=== PATIENT | female | born 1975 | race Caucasian/White ===

== ENCOUNTER 2017-09-08 19:44 | Emergency (ER) | payer MEDICAID ==
[~2017-09-08] VITALS: Ht 157.5 cm; Wt 63.6 kg
[~2017-09-08 19:44] MED LIST: AMOX1TAB16 PO; CARBAMEZAPINE PO; DSS100 PO; HYDR-309 PO
[2017-09-08 20:40] LABS: ANION GAP 7 mmol/L (8-16); CALCIUM, TOTAL 8.7 mg/dL (8.8-10.5); CARBON DIOXIDE 28 mmol/L (22-29); CHLORIDE 103 mmol/L (98-107); CREATININE 0.71 mg/dL (0.60-1.30); GLOMERULAR FILTR. RATE CALC > 60 mL/min (>60); GLUCOSE,RANDOM 107 mg/dL (70-110); POTASSIUM 4.1 mmol/L (3.5-5.1); SODIUM SERUM 138 mmol/L (136-145); UREA NITROGEN, BLOOD 17 mg/dL (7-18)
[2017-09-08] MEDS ORDERED: KETOROLAC TROMETHAMINE 30 MG/ML VIAL IM ONE (23:30)
[2017-09-08 23:31] VITALS: BP 136/68
== END 2017-09-08 23:44 | disposition home or self-care (01) ==
LOC: EMS 19:45
DX: R56.9 Unspecified convulsions (principal)
CPT/HCPCS: 36415; 80048; 80156; 82962; 84703; 96372; 99284; J1885

== ENCOUNTER 2018-10-20 17:28 | Emergency (ER) | payer MEDICAID ==
[~2018-10-20] VITALS: Ht 154.9 cm; Wt 77.7 kg
[~2018-10-20 17:28] MED LIST changes: -AMOX1TAB16 PO; -DSS100 PO; -HYDR-309 PO
[2018-10-20] MEDS ORDERED: PredniSONE 20 MG TABLET PO ONE (18:00)
[2018-10-20] MEDS ORDERED: ALBUTEROL SULFATE 2.5 MG/0.5 ML NEB SOLUTION NEB ONE (18:00)
[2018-10-20] MEDS ORDERED: IPRATROPIUM BROMIDE 0.5 MG/2.5 ML NEB SOLUTION NEB ONE (18:00)
[2018-10-20 19:13] LABS: BASOPHILS % (AUTO) 0.6 % (0.0-2.0); EOSINOPHILS % (AUTO) 0 % (1.0-6.0); HEMATOCRIT 41.8 % (36-46); LYMPHOCYTES # (AUTO) 1.4 K/uL (1.0-4.8); LYMPHOCYTES % (AUTO) 19.8 % (22.0-44.0); MEAN CORPUSCULAR HEMOGLOBIN 29.7 pg (26.0-34.0); MEAN CORPUSCULAR HGB CONC 33.5 G/dL (31.0-37.0); MEAN CORPUSCULAR VOLUME 89 fL (80-100); MONOCYTES # (AUTO) 0.7 K/uL (0.1-1.0); MONOCYTES % (AUTO) 10.3 % (2.0-9.0); NEUTROPHILS # (AUTO) 4.9 K/uL (1.8-7.7); NEUTROPHILS % (AUTO) 69.3 % (40.0-70.0); PLATELET COUNT (AUTO) 154 K/uL (150-450); RED BLOOD CELL COUNT(AUTO) 4.72 MIL/uL (4.00-5.20); RED CELL DISTRIBUTION WIDTH 13.5 % (11.5-14.5)
[2018-10-20 19:35] LABS: B-TYPE NATRIURETIC PEPTIDE 20 pg/mL (0-100)
[2018-10-20 19:39] LABS: ANION GAP 10 mmol/L (8-16); CALCIUM, TOTAL 9.1 mg/dL (8.8-10.5); CARBON DIOXIDE 23 mmol/L (22-29); CHLORIDE 104 mmol/L (98-107); CREATININE 0.77 mg/dL (0.60-1.30); GLOMERULAR FILTR. RATE CALC > 60 mL/min (>60); GLUCOSE,RANDOM 99 mg/dL (70-110); POTASSIUM 3.3 mmol/L (3.5-5.1); SODIUM SERUM 137 mmol/L (136-145); UREA NITROGEN, BLOOD 11 mg/dL (7-18)
[2018-10-20 20:02] LABS: ALANINE AMINOTRANSFERASE 20 U/L (12-78); ALBUMIN 3.1 g/dL (3.4-5.0); ALKALINE PHOSPHATASE 97 U/L (46-116); ASPARTATE AMINOTRANSFERASE 15 U/L (15-37); BILIRUBIN,TOTAL 0.1 mg/dL (0.1-1.0); CREATINE KINASE, TOTAL ONLY 91 U/L (26-192); TOTAL PROTEIN, SERUM 7.5 g/dL (6.4-8.2)
[2018-10-20 20:06] VITALS: BP 116/78
[2018-10-20 20:08] LABS: APPEARANCE,URINE CLOUDY (CLEAR); BILIRUBIN,URINE NEGATIVE (NEGATIVE); GLUCOSE, URINE (UA) NEGATIVE (NEGATIVE); KETONES,URINE TRACE mg/dL (NEGATIVE); LEUKOCYTE ESTERASE ,URINE SMALL (NEGATIVE); NITRATE,URINE NEGATIVE (NEGATIVE); OCCULT BLOOD,URINE LARGE (NEGATIVE); PH,URINE 8.5 (5.0-8.0); PROTEIN,URINE NEGATIVE (NEGATIVE); UROBILINOGEN,URINE 0.2 mg/dL (<=1.0)
[2018-10-20 20:13] LABS: BACTERIA,URINE Few /HPF (None Seen); RBC,URINE 26-50 /HPF (0-2)
[2018-10-20 20:14] LABS: SQUAMOUS EPITHELIAL CELL,UR Few /LPF (None Seen)
== END 2018-10-20 20:09 | disposition home or self-care (01) ==
LOC: EMS 17:28
DX: J18.9 Pneumonia, unspecified organism (principal)
CPT/HCPCS: 36415; 71045; 80053; 81001; 81025; 82550; 83880; 84484; 85025; 87086; 93005; 94640; 99284; J7512

== ENCOUNTER 2018-10-22 12:41 | Emergency (ER) | payer MEDICAID ==
[~2018-10-22] VITALS: Ht 162.6 cm; Wt 90.9 kg
[2018-10-22] MEDS ORDERED: ALBUTEROL SULFATE 2.5 MG/0.5 ML NEB SOLUTION NEB ONE (12:45)
[2018-10-22] MEDS ORDERED: IPRATROPIUM BROMIDE 0.5 MG/2.5 ML NEB SOLUTION NEB ONE ×2 (12:45→15:00)
[2018-10-22] MEDS ORDERED: ALBUTEROL SULFATE 5 MG/ML 20 ML NEB SOLN [BULK] NEB ONE (15:00)
[2018-10-22] MEDS ORDERED: ALBUTEROL SULFATE HFA 90 MCG/PUFF 8 GM INHALER IH ONE (16:00)
[2018-10-22 16:50] VITALS: BP 117/57
== END 2018-10-22 17:10 | disposition home or self-care (01) ==
LOC: EMS 12:41
DX: J18.9 Pneumonia, unspecified organism (principal); R06.02 Shortness of breath
CPT/HCPCS: 94640; 94644; J3535

== ENCOUNTER 2021-01-08 19:02 | Emergency (ER) | payer MEDICAID ==
[~2021-01-08] VITALS: Ht 165.1 cm; Wt 75.0 kg
[2021-01-08 22:43] LABS: COVID AG,FIA SOURCE NASOPHARYNGEAL
[2021-01-08 23:02] LABS: BASOPHILS % (AUTO) 0.3 % (0.0-2.0); EOSINOPHILS % (AUTO) 0 % (1.0-6.0); HEMATOCRIT 40.4 % (36-46); HEMOGLOBIN 13.3 g/dL (12.0-16.0); LYMPHOCYTES # (AUTO) 1.3 K/uL (1.0-4.8); LYMPHOCYTES % (AUTO) 18.5 % (22.0-44.0); MEAN CORPUSCULAR HEMOGLOBIN 30.1 pg (26.0-34.0); MEAN CORPUSCULAR HGB CONC 32.9 G/dL (31.0-37.0); MEAN CORPUSCULAR VOLUME 92 fL (80-100); MONOCYTES # (AUTO) 0.9 K/uL (0.1-1.0); MONOCYTES % (AUTO) 11.9 % (2.0-9.0); NEUTROPHILS # (AUTO) 5.1 K/uL (1.8-7.7); NEUTROPHILS % (AUTO) 69.3 % (40.0-70.0); PLATELET COUNT (AUTO) 123 K/uL (150-450); RED BLOOD CELL COUNT(AUTO) 4.41 MIL/uL (4.00-5.20); RED CELL DISTRIBUTION WIDTH 14.2 % (11.5-14.5)
[2021-01-08 23:12] LABS: ANION GAP 7 mmol/L (8-16); CALCIUM, TOTAL 8.1 mg/dL (8.8-10.5); CARBON DIOXIDE 28 mmol/L (22-29); CHLORIDE 109 mmol/L (98-107); CREATININE 0.64 mg/dL (0.60-1.30); GLOMERULAR FILTR. RATE CALC > 60 mL/min (>60); GLUCOSE,RANDOM 97 mg/dL (70-110); POTASSIUM 3.8 mmol/L (3.5-5.1); SODIUM SERUM 144 mmol/L (136-145); UREA NITROGEN, BLOOD 11 mg/dL (7-18)
[2021-01-08] MEDS ORDERED: LevETIRAcetam 500 MG TABLET PO ONE (23:15)
[2021-01-08 23:16] LABS: APPEARANCE,URINE CLEAR (CLEAR); BILIRUBIN,URINE NEGATIVE (NEGATIVE); GLUCOSE, URINE (UA) NEGATIVE (NEGATIVE); KETONES,URINE NEGATIVE (NEGATIVE); LEUKOCYTE ESTERASE ,URINE NEGATIVE (NEGATIVE); NITRATE,URINE NEGATIVE (NEGATIVE); OCCULT BLOOD,URINE NEGATIVE (NEGATIVE); PROTEIN,URINE NEGATIVE (NEGATIVE); UROBILINOGEN,URINE 0.2 mg/dL (<=1.0)
[2021-01-08 23:20] LABS: LACTIC ACID 0.9 mmol/L (0.4-2.0)
[2021-01-08 23:23] LABS: BACTERIA,URINE None Seen /HPF (None Seen); RBC,URINE None Seen /HPF (0-2); SQUAMOUS EPITHELIAL CELL,UR Few /LPF (None Seen); WBC,URINE 0-2 /HPF (0-5)
[2021-01-08 23:36] LABS: ALANINE AMINOTRANSFERASE 25 U/L (12-78); ALKALINE PHOSPHATASE 117 U/L (46-116); ASPARTATE AMINOTRANSFERASE 18 U/L (15-37); BILIRUBIN,TOTAL 0.1 mg/dL (0.1-1.0); CREATINE KINASE, TOTAL ONLY 111 U/L (26-192); HCG,QUANTITATIVE < 1 mIU/mL (0-6); TOTAL PROTEIN, SERUM 6.9 g/dL (6.4-8.2)
[2021-01-09 01:17] VITALS: BP 118/77
== END 2021-01-09 01:20 | disposition home or self-care (01) ==
LOC: EMS 19:02
DX: G40.909 Epilepsy, unspecified, not intractable, without status epilepticus (principal); Z20.822 Contact with and (suspected) exposure to COVID-19
CPT/HCPCS: 80053; 81001; 82550; 83605; 83735; 84702; 85025; 99283

== ENCOUNTER 2021-04-06 14:44 | Emergency (ER) | payer MEDICAID ==
[~2021-04-06] VITALS: Ht 160 cm; Wt 76.4 kg
[2021-04-06] MEDS ORDERED: ACETAMINOPHEN 500 MG TABLET PO ONE (15:15)
[2021-04-06 15:26] LABS: BASOPHILS % (AUTO) 0.6 % (0.0-2.0); EOSINOPHILS % (AUTO) 0 % (1.0-6.0); HEMATOCRIT 41.7 % (36-46); HEMOGLOBIN 13.6 g/dL (12.0-16.0); LYMPHOCYTES % (AUTO) 17.9 % (22.0-44.0); MEAN CORPUSCULAR HEMOGLOBIN 29.8 pg (26.0-34.0); MEAN CORPUSCULAR HGB CONC 32.6 G/dL (31.0-37.0); MEAN CORPUSCULAR VOLUME 91 fL (80-100); MONOCYTES # (AUTO) 0.7 K/uL (0.1-1.0); MONOCYTES % (AUTO) 12.9 % (2.0-9.0); NEUTROPHILS # (AUTO) 3.9 K/uL (1.8-7.7); NEUTROPHILS % (AUTO) 68.6 % (40.0-70.0); PLATELET COUNT (AUTO) 100 K/uL (150-450); RED BLOOD CELL COUNT(AUTO) 4.56 MIL/uL (4.00-5.20); RED CELL DISTRIBUTION WIDTH 13.7 % (11.5-14.5)
[2021-04-06 15:38] LABS: ANION GAP 10 mmol/L (8-16); CALCIUM, TOTAL 8.2 mg/dL (8.8-10.5); CARBON DIOXIDE 25 mmol/L (22-29); CHLORIDE 106 mmol/L (98-107); CREATININE 0.75 mg/dL (0.60-1.30); GLOMERULAR FILTR. RATE CALC > 60 mL/min (>60); GLUCOSE,RANDOM 92 mg/dL (70-110); POTASSIUM 3.6 mmol/L (3.5-5.1); SODIUM SERUM 141 mmol/L (136-145); UREA NITROGEN, BLOOD 11 mg/dL (7-18)
[2021-04-06 15:45] LABS: LACTIC ACID 1.4 mmol/L (0.4-2.0)
[2021-04-06 15:48] LABS: B-TYPE NATRIURETIC PEPTIDE 43 pg/mL (0-100)
[2021-04-06 15:55] LABS: COVID AG,FIA SOURCE NASOPHARYNGEAL
[2021-04-06 16:17] LABS: ALANINE AMINOTRANSFERASE 19 U/L (12-78); ALBUMIN 2.9 g/dL (3.4-5.0); ALKALINE PHOSPHATASE 100 U/L (46-116); ASPARTATE AMINOTRANSFERASE 16 U/L (15-37); BILIRUBIN,TOTAL 0.2 mg/dL (0.1-1.0); C-REACTIVE PROTEIN QUANT 1.86 mg/dL (0.00-0.30); CREATINE KINASE, TOTAL ONLY 81 U/L (26-192); FERRITIN 62 ng/mL (8-252); HCG,QUANTITATIVE < 1 mIU/mL (0-6); TOTAL PROTEIN, SERUM 7.1 g/dL (6.4-8.2)
[2021-04-06 16:35] LABS: INFLUENZA TYPE A NEGATIVE FOR TYPE A (NEGATIVE); INFLUENZA TYPE B NEGATIVE FOR TYPE B (NEGATIVE)
[2021-04-06 16:45] VITALS: BP 136/66
== END 2021-04-06 17:09 | disposition home or self-care (01) ==
LOC: EMS 14:47
DX: B34.9 Viral infection, unspecified (principal); Z20.822 Contact with and (suspected) exposure to COVID-19
CPT/HCPCS: 36415; 71045; 80053; 82550; 82728; 83605; 83880; 84484; 84702; 85025; 85379; 86140; 87426; 87804; 93005; 99285; U0003

== ENCOUNTER 2021-06-08 15:21 | Emergency (ER) | payer MEDICAID ==
[~2021-06-08] VITALS: Ht 157.5 cm; Wt 72.7 kg
[2021-06-08 15:32] VITALS: BP 115/67
== END 2021-06-08 16:13 | disposition home or self-care (01) ==
LOC: EMS 15:23
DX: R05.9 Cough, unspecified (principal); Z20.822 Contact with and (suspected) exposure to COVID-19
CPT/HCPCS: 99283; U0003

== ENCOUNTER 2021-06-23 16:19 | Emergency (ER) | payer MEDICAID ==
[~2021-06-23] VITALS: Ht 157.5 cm; Wt 77.3 kg
[2021-06-23] MEDS ORDERED: ACETAMINOPHEN 500 MG TABLET PO ONE (16:30)
[2021-06-23] MEDS ORDERED: BACITRACIN 0.9 GM PACKET OINTMENT TP ONE (16:30)
[2021-06-23] MEDS ORDERED: PERTUSS(ACELL),DIPH,TET VAC/PF 0.5 ML SYRINGE IM. ONE (16:30)
[2021-06-23] MEDS ORDERED: LIDOCAINE 1% 10 ML VIAL SQ ONE (16:30)
[2021-06-23] MEDS ORDERED: LEVE500T20 PO (16:32)
[2021-06-23] MEDS ORDERED: CARB200T6 PO (16:32)
[2021-06-23] MEDS ORDERED: OXYMETAZOLINE HCL 0.05% 15 ML NASAL SPRAY NASAL ONE (19:00)
[2021-06-23 21:15] VITALS: BP 118/70
== END 2021-06-23 22:01 | disposition home or self-care (01) ==
LOC: EMS 16:19
DX: S01.511A Laceration without foreign body of lip, initial encounter (principal); S01.21XA Laceration without foreign body of nose, initial encounter; S01.112A Laceration without foreign body of left eyelid and periocular area, initial encounter; Z79.899 Other long term (current) drug therapy; W01.10XA Fall on same level from slipping, tripping and stumbling with subsequent striking against unspecified object, initial encounter; Y93.89 Activity, other specified; Y92.89 Other specified places as the place of occurrence of the external cause; Y99.8 Other external cause status
CPT/HCPCS: 12013; 70110; 70160; 90471; 90715; 99284; J3490; 12011

== ENCOUNTER 2021-06-26 08:14 | Emergency (ER) | payer MEDICAID ==
[~2021-06-26] VITALS: Ht 157.5 cm; Wt 77.2 kg
[~2021-06-26 08:14] MED LIST changes: +CARB200T6 PO; -CARBAMEZAPINE PO; +LEVE500T20 PO
[2021-06-26 08:16] VITALS: BP 115/83
== END 2021-06-26 09:41 | disposition home or self-care (01) ==
LOC: EMS 08:15
DX: S01.511D Laceration without foreign body of lip, subsequent encounter (principal); Z90.89 Acquired absence of other organs; X58.XXXD Exposure to other specified factors, subsequent encounter
CPT/HCPCS: 99281; Z7502

== ENCOUNTER 2022-01-16 18:52 | Emergency (ER) | payer MEDICAID ==
[~2022-01-16] VITALS: Ht 152.4 cm; Wt 80.0 kg
[~2022-01-16 18:52] MED LIST changes: +LIDOCAINE/PF 2% 5 ML VIAL IM ONE; +PROPOFOL 1% 20 ML VIAL IVP ONE
[2022-01-16 19:11] VITALS: BP 118/77
[2022-01-16] MEDS ORDERED: SODIUM CHLORIDE 0.9% 0 ML ONE (20:08)
[2022-01-16 20:09] LABS: COVID AG,FIA SOURCE NASOPHARYNGEAL
[2022-01-16] MEDS ORDERED: SODIUM CHLORIDE 0.9% 1,000 ML ONE (20:14)
[2022-01-16 20:25] LABS: BASOPHILS % (AUTO) 0.3 % (0.0-2.0); EOSINOPHILS % (AUTO) 0 % (1.0-6.0); HEMATOCRIT 38.9 % (36-46); HEMOGLOBIN 13.1 g/dL (12.0-16.0); LYMPHOCYTES % (AUTO) 16.9 % (22.0-44.0); MEAN CORPUSCULAR HEMOGLOBIN 29.9 pg (26.0-34.0); MEAN CORPUSCULAR HGB CONC 33.6 G/dL (31.0-37.0); MEAN CORPUSCULAR VOLUME 89 fL (80-100); MONOCYTES # (AUTO) 0.7 K/uL (0.1-1.0); MONOCYTES % (AUTO) 12.4 % (2.0-9.0); NEUTROPHILS # (AUTO) 4.2 K/uL (1.8-7.7); NEUTROPHILS % (AUTO) 70.4 % (40.0-70.0); PLATELET COUNT (AUTO) 114 K/uL (150-450); RED BLOOD CELL COUNT(AUTO) 4.37 MIL/uL (4.00-5.20)
[2022-01-16 20:33] LABS: ANION GAP 14 mmol/L (8-16); CALCIUM, TOTAL 8.1 mg/dL (8.8-10.5); CARBON DIOXIDE 27 mmol/L (22-29); CHLORIDE 102 mmol/L (98-107); CREATININE 0.76 mg/dL (0.60-1.30); GLUCOSE,RANDOM 91 mg/dL (70-110); POTASSIUM 3.6 mmol/L (3.5-5.1); SODIUM SERUM 143 mmol/L (136-145); UREA NITROGEN, BLOOD 10 mg/dL (7-18)
[2022-01-16 20:34] LABS: GLOMERULAR FILTR. RATE CALC > 60 mL/min (>60)
[2022-01-16 20:39] LABS: ALANINE AMINOTRANSFERASE 18 U/L (12-78); ALBUMIN 3.1 g/dL (3.4-5.0); ALKALINE PHOSPHATASE 92 U/L (46-116); ASPARTATE AMINOTRANSFERASE 15 U/L (15-37); BILIRUBIN,TOTAL 0.2 mg/dL (0.1-1.0)
[2022-01-16] MEDS ORDERED: PANT-31 PO (21:22)
== END 2022-01-16 22:38 | disposition home or self-care (01) ==
LOC: EMS 21:36
DX: T18.128A Food in esophagus causing other injury, initial encounter (principal); M19.90 Unspecified osteoarthritis, unspecified site; Z20.822 Contact with and (suspected) exposure to COVID-19; Z86.69 Personal history of other diseases of the nervous system and sense organs; Z90.49 Acquired absence of other specified parts of digestive tract; Z98.890 Other specified postprocedural states; X58.XXXA Exposure to other specified factors, initial encounter; Y93.89 Activity, other specified; Y92.89 Other specified places as the place of occurrence of the external cause; Y99.8 Other external cause status
CPT/HCPCS: 43247; 80053; 85025; 36415; 99285; 87426; Z7610; J2704; J3490; J7030; C9803

== ENCOUNTER 2022-07-03 08:06 | Emergency (ER) | payer MEDICAID ==
[~2022-07-03] VITALS: Ht 157.5 cm; Wt 83.6 kg
[~2022-07-03 08:06] MED LIST changes: -LIDOCAINE/PF 2% 5 ML VIAL IM ONE; +PANT-31 PO; -PROPOFOL 1% 20 ML VIAL IVP ONE
[2022-07-03] MEDS ORDERED: METOCLOPRAMIDE HCL 5 MG/ML 2 ML VIAL IVP ONE (08:45)
[2022-07-03] MEDS ORDERED: SODIUM CHLORIDE 0.9% 1,000 ML IV ONE (08:45)
[2022-07-03 09:21] LABS: BASOPHILS % (AUTO) 0.7 % (0.0-2.0); EOSINOPHILS % (AUTO) 0 % (1.0-6.0); HEMATOCRIT 42.4 % (36-46); LYMPHOCYTES # (AUTO) 0.7 K/uL (1.0-4.8); LYMPHOCYTES % (AUTO) 9.8 % (22.0-44.0); MEAN CORPUSCULAR HGB CONC 33.1 G/dL (31.0-37.0); MEAN CORPUSCULAR VOLUME 91 fL (80-100); MONOCYTES # (AUTO) 0.5 K/uL (0.1-1.0); MONOCYTES % (AUTO) 7.1 % (2.0-9.0); NEUTROPHILS % (AUTO) 82.4 % (40.0-70.0); PLATELET COUNT (AUTO) 126 K/uL (150-450); RED BLOOD CELL COUNT(AUTO) 4.67 MIL/uL (4.00-5.20); RED CELL DISTRIBUTION WIDTH 14.2 % (11.5-14.5)
[2022-07-03 09:54] LABS: ANION GAP 8 mmol/L (8-16); CALCIUM, TOTAL 8.8 mg/dL (8.8-10.5); CARBON DIOXIDE 28 mmol/L (22-29); CHLORIDE 103 mmol/L (98-107); CREATININE 0.74 mg/dL (0.60-1.30); GLOMERULAR FILTR. RATE CALC > 60 mL/min (>60); GLUCOSE,RANDOM 98 mg/dL (70-110); POTASSIUM 3.9 mmol/L (3.5-5.1); SODIUM SERUM 139 mmol/L (136-145); UREA NITROGEN, BLOOD 9 mg/dL (7-18)
[2022-07-03 10:06] LABS: ALANINE AMINOTRANSFERASE 19 U/L (12-78); ALBUMIN 3.5 g/dL (3.4-5.0); ALKALINE PHOSPHATASE 123 U/L (46-116); ASPARTATE AMINOTRANSFERASE 19 U/L (15-37); BILIRUBIN,TOTAL 0.3 mg/dL (0.1-1.0); HCG,QUANTITATIVE < 1 mIU/mL (0-6); LIPASE 105 U/L (73-393); TOTAL PROTEIN, SERUM 8.1 g/dL (6.4-8.2)
[2022-07-03 10:12] LABS: APPEARANCE,URINE CLEAR (CLEAR); BILIRUBIN,URINE NEGATIVE (NEGATIVE); GLUCOSE, URINE (UA) NEGATIVE (NEGATIVE); KETONES,URINE NEGATIVE (NEGATIVE); LEUKOCYTE ESTERASE ,URINE NEGATIVE (NEGATIVE); NITRATE,URINE NEGATIVE (NEGATIVE); OCCULT BLOOD,URINE NEGATIVE (NEGATIVE); PROTEIN,URINE NEGATIVE (NEGATIVE); SPECIFIC GRAVITIY, URINE 1.004 (1.003-1.030); UROBILINOGEN,URINE <=1.0 mg/dL (<=1.0)
[2022-07-03 12:21] VITALS: BP 125/70
== END 2022-07-03 12:55 | disposition home or self-care (01) ==
LOC: EMS 08:12
DX: K52.9 Noninfective gastroenteritis and colitis, unspecified (principal); M19.90 Unspecified osteoarthritis, unspecified site; Z90.49 Acquired absence of other specified parts of digestive tract; Z98.890 Other specified postprocedural states
CPT/HCPCS: 99285; 96374; 96361; 80053; 81003; 83690; 84702; 85025; 36415; 74022; J2765; J7030

== ENCOUNTER 2022-10-01 18:53 | Emergency (ER) | payer MEDICAID ==
[~2022-10-01] VITALS: Ht 157.5 cm; Wt 83.6 kg
[2022-10-01 19:59] LABS: BASOPHILS % (AUTO) 0.3 % (0.0-2.0); EOSINOPHILS % (AUTO) 0 % (1.0-6.0); HEMATOCRIT 39.8 % (36-46); LYMPHOCYTES # (AUTO) 0.9 K/uL (1.0-4.8); LYMPHOCYTES % (AUTO) 10.7 % (22.0-44.0); MEAN CORPUSCULAR HEMOGLOBIN 29.6 pg (26.0-34.0); MEAN CORPUSCULAR HGB CONC 32.7 G/dL (31.0-37.0); MEAN CORPUSCULAR VOLUME 91 fL (80-100); MONOCYTES # (AUTO) 0.7 K/uL (0.1-1.0); MONOCYTES % (AUTO) 8.1 % (2.0-9.0); NEUTROPHILS # (AUTO) 6.7 K/uL (1.8-7.7); NEUTROPHILS % (AUTO) 80.9 % (40.0-70.0); PLATELET COUNT (AUTO) 103 K/uL (150-450); RED CELL DISTRIBUTION WIDTH 14.2 % (11.5-14.5)
[2022-10-01 20:00] VITALS: BP 125/69
[2022-10-01 20:09] LABS: ANION GAP 7 mmol/L (8-16); CALCIUM, TOTAL 8.3 mg/dL (8.8-10.5); CARBON DIOXIDE 28 mmol/L (22-29); CHLORIDE 107 mmol/L (98-107); CREATININE 0.73 mg/dL (0.60-1.30); GLOMERULAR FILTR. RATE CALC > 60 mL/min (>60); GLUCOSE,RANDOM 123 mg/dL (70-110); POTASSIUM 3.7 mmol/L (3.5-5.1); SODIUM SERUM 142 mmol/L (136-145); UREA NITROGEN, BLOOD 13 mg/dL (7-18)
[2022-10-01 20:18] LABS: ALANINE AMINOTRANSFERASE 19 U/L (12-78); ALBUMIN 3.1 g/dL (3.4-5.0); ALKALINE PHOSPHATASE 125 U/L (46-116); ASPARTATE AMINOTRANSFERASE 15 U/L (15-37); BILIRUBIN,TOTAL 0.1 mg/dL (0.1-1.0); CARBAMAZEPINE (TEGRETOL) 11.1 mcg/mL (4.0-12.0); TOTAL PROTEIN, SERUM 6.9 g/dL (6.4-8.2)
== END 2022-10-01 21:50 | disposition home or self-care (01) ==
LOC: EMS 18:53
DX: G40.909 Epilepsy, unspecified, not intractable, without status epilepticus (principal); M19.90 Unspecified osteoarthritis, unspecified site; Z90.89 Acquired absence of other organs
CPT/HCPCS: 80053; 80156; 84703; 85025; 99283

== ENCOUNTER 2023-06-09 13:28 | Emergency (ER) | payer MEDICAID ==
[~2023-06-09] VITALS: Ht 152.4 cm; Wt 83.6 kg
[~2023-06-09 13:28] MED LIST changes: -CARB200T6 PO; -PANT-31 PO
[2023-06-09 13:51] VITALS: TEMP 98.8
[2023-06-09 14:08] LABS: COVID AG,FIA SOURCE NASAL SWAB
[2023-06-09 14:16] LABS: INFLUENZA TYPE A NEGATIVE FOR TYPE A (NEGATIVE); INFLUENZA TYPE B NEGATIVE FOR TYPE B (NEGATIVE)
[2023-06-09 14:25] LABS: RAPID GROUP A STREP NEGATIVE (NEGATIVE); SARS-COV2 (COVID) ANTIGEN,FIA Positive (Negative)
[2023-06-09 16:01] LABS: APPEARANCE,URINE CLEAR (CLEAR); BILIRUBIN,URINE NEGATIVE (NEGATIVE); COLOR,URINE COLORLESS (YELLOW); GLUCOSE, URINE (UA) NEGATIVE (NEGATIVE); KETONES,URINE NEGATIVE (NEGATIVE); LEUKOCYTE ESTERASE ,URINE TRACE (NEGATIVE); NITRATE,URINE NEGATIVE (NEGATIVE); OCCULT BLOOD,URINE TRACE (NEGATIVE); PROTEIN,URINE NEGATIVE (NEGATIVE); SPECIFIC GRAVITIY, URINE 1.005 (1.003-1.030); UROBILINOGEN,URINE <=1.0 mg/dL (<=1.0)
[2023-06-09 16:38] LABS: BACTERIA,URINE None Seen /HPF (None Seen); RBC,URINE 0-2 /HPF (0-2); SQUAMOUS EPITHELIAL CELL,UR Few /LPF (None Seen)
[2023-06-09] MEDS ORDERED: NIRM1TAB4 PO (16:38)
[2023-06-09 16:56] VITALS: BP 132/74; PULSE 71; RESP 20
== END 2023-06-09 16:57 | disposition home or self-care (01) ==
LOC: EMS 13:41
DX: U07.1 COVID-19 (principal); M19.90 Unspecified osteoarthritis, unspecified site; Z90.49 Acquired absence of other specified parts of digestive tract; Z98.890 Other specified postprocedural states
CPT/HCPCS: 81001; 87430; 87804; 99283

== ENCOUNTER 2023-06-12 12:24 | Emergency (ER) | payer MEDICAID ==
[~2023-06-12] VITALS: Ht 154.9 cm; Wt 83.6 kg
[~2023-06-12 12:24] MED LIST changes: +NIRM1TAB4 PO
[2023-06-12 12:35] VITALS: BP 142/76; PULSE 76; RESP 20; TEMP 97.9
[2023-06-12] MEDS ORDERED: SODIUM CHLORIDE 0.9% 1,000 ML IV ONE (12:45)
[2023-06-12 12:52] LABS: BASOPHILS % (AUTO) 0.3 % (0.0-2.0); EOSINOPHILS % (AUTO) 0 % (1.0-6.0); HEMATOCRIT 38.2 % (36-46); HEMOGLOBIN 13.2 g/dL (12.0-16.0); LYMPHOCYTES # (AUTO) 0.9 K/uL (1.0-4.8); LYMPHOCYTES % (AUTO) 16.1 % (22.0-44.0); MEAN CORPUSCULAR HGB CONC 34.5 G/dL (31.0-37.0); MEAN CORPUSCULAR VOLUME 90 fL (80-100); MONOCYTES # (AUTO) 0.5 K/uL (0.1-1.0); MONOCYTES % (AUTO) 8.8 % (2.0-9.0); NEUTROPHILS # (AUTO) 4.1 K/uL (1.8-7.7); NEUTROPHILS % (AUTO) 74.8 % (40.0-70.0); RED BLOOD CELL COUNT(AUTO) 4.25 MIL/uL (4.00-5.20); RED CELL DISTRIBUTION WIDTH 13.4 % (11.5-14.5); WHITE BLOOD COUNT (AUTO) 5.5 K/uL (4.5-11.0)
[2023-06-12 13:23] LABS: PLATELET COUNT (AUTO) 85 K/uL (150-450)
[2023-06-12 13:24] LABS: RBC MORPHOLOGY COMMENT NORMAL RBC MORPH
[2023-06-12 13:36] LABS: TROPONIN I-HIGH SENSITIVITY 6 ng/L (<51)
[2023-06-12 13:38] LABS: ANION GAP 5 mmol/L (8-16); CALCIUM, TOTAL 8.5 mg/dL (8.8-10.5); CARBON DIOXIDE 28 mmol/L (22-29); CHLORIDE 102 mmol/L (98-107); CREATININE 0.53 mg/dL (0.60-1.30); GLOMERULAR FILTR. RATE CALC > 60 mL/min (>60); GLUCOSE,RANDOM 100 mg/dL (70-110); POTASSIUM 3.8 mmol/L (3.5-5.1); SODIUM SERUM 135 mmol/L (136-145); UREA NITROGEN, BLOOD 8 mg/dL (7-18)
[2023-06-12 13:44] LABS: ALANINE AMINOTRANSFERASE 33 U/L (12-78); ALKALINE PHOSPHATASE 105 U/L (46-116); ASPARTATE AMINOTRANSFERASE 26 U/L (15-37); BILIRUBIN,TOTAL 0.2 mg/dL (0.1-1.0); CREATINE KINASE, TOTAL ONLY 68 U/L (26-192); TOTAL PROTEIN, SERUM 7.2 g/dL (6.4-8.2)
== END 2023-06-12 14:46 | disposition home or self-care (01) ==
LOC: EMS 12:25
DX: R42 Dizziness and giddiness (principal); R53.1 Weakness; M19.90 Unspecified osteoarthritis, unspecified site; Z90.49 Acquired absence of other specified parts of digestive tract; Z98.890 Other specified postprocedural states
CPT/HCPCS: 99284; 96360; 80053; 82550; 84484; 85025; 36415; 93005; J7030

== ENCOUNTER 2024-02-24 16:16 | Emergency (ER) | payer MEDICAID, OTHER ==
[~2024-02-24] VITALS: Ht 157.5 cm; Wt 83.6 kg
[~2024-02-24 16:16] MED LIST changes: +LEVE-71 PO; -LEVE500T20 PO
[2024-02-24 16:21] VITALS: TEMP 97.8
[2024-02-24] MEDS ORDERED: HYDR200T76 PO (16:23)
[2024-02-24] MEDS ORDERED: CARB-92 PO (16:23)
[2024-02-24] MEDS ORDERED: LACO50TA6 PO (16:23)
[2024-02-24] MEDS ORDERED: CARB200T6 PO (16:23)
[2024-02-24] MEDS ORDERED: LEVE10006 PO (16:23)
[2024-02-24] MEDS: IBUPROFEN 600 MG TABLET PO ONE (18:29)
[2024-02-24] MEDS ORDERED: IBUP-1492 PO (19:33)
[2024-02-24 19:52] VITALS: BP 117/60; PULSE 75; RESP 18; O2SAT 96
== END 2024-02-24 20:09 | disposition home or self-care (01) ==
LOC: EMS 16:16
DX: S33.5XXA Sprain of ligaments of lumbar spine, initial encounter (principal); S80.02XA Contusion of left knee, initial encounter; S90.32XA Contusion of left foot, initial encounter; S50.01XA Contusion of right elbow, initial encounter; W01.0XXA Fall on same level from slipping, tripping and stumbling without subsequent striking against object, initial encounter; Y93.89 Activity, other specified; Y92.89 Other specified places as the place of occurrence of the external cause; Y99.8 Other external cause status
CPT/HCPCS: 72100; 99284

== ENCOUNTER 2024-04-01 16:03 | Emergency (ER) | payer OTHER ==
[~2024-04-01] VITALS: Ht 157.5 cm; Wt 74.5 kg
[~2024-04-01 16:03] MED LIST changes: +CARB-92 PO; +CARB200T6 PO; +HYDR200T76 PO; +IBUP-1492 PO; +LACO50TA6 PO; -LEVE-71 PO; +LEVE10006 PO; -NIRM1TAB4 PO
[2024-04-01] MEDS ORDERED: MYCO500T5 PO (18:49)
[2024-04-01] MEDS ORDERED: LATA2.5D14 OU (18:49)
[2024-04-01] MEDS: LORazepam 2 MG/ML VIAL IVP ONE (18:51)
[2024-04-01] MEDS: LevETIRAcetam 1,000 MG in DEXTROSE 5%-WATER 100 ML IV ONE (19:13)
[2024-04-01 19:36] LABS: BASOPHILS % (AUTO) 0.6 % (0.0-2.0); EOSINOPHILS % (AUTO) 0 % (1.0-6.0); HEMATOCRIT 41.7 % (36-46); HEMOGLOBIN 13.8 g/dL (12.0-16.0); LYMPHOCYTES # (AUTO) 1.1 K/uL (1.0-4.8); LYMPHOCYTES % (AUTO) 16.4 % (22.0-44.0); MEAN CORPUSCULAR HEMOGLOBIN 30.4 pg (26.0-34.0); MEAN CORPUSCULAR HGB CONC 33.1 G/dL (31.0-37.0); MEAN CORPUSCULAR VOLUME 92 fL (80-100); MONOCYTES # (AUTO) 0.5 K/uL (0.1-1.0); MONOCYTES % (AUTO) 7.3 % (2.0-9.0); NEUTROPHILS # (AUTO) 5.3 K/uL (1.8-7.7); NEUTROPHILS % (AUTO) 75.7 % (40.0-70.0); PLATELET COUNT (AUTO) 108 K/uL (150-450); RED BLOOD CELL COUNT(AUTO) 4.53 MIL/uL (4.00-5.20); RED CELL DISTRIBUTION WIDTH 14.2 % (11.5-14.5)
[2024-04-01 19:37] LABS: ANION GAP 5 mmol/L (8-16); CALCIUM, TOTAL 8.3 mg/dL (8.8-10.5); CARBON DIOXIDE 28 mmol/L (22-29); CHLORIDE 107 mmol/L (98-107); CREATININE 0.67 mg/dL (0.60-1.30); GLOMERULAR FILTR. RATE CALC > 60 mL/min (>60); GLUCOSE,RANDOM 88 mg/dL (70-110); POTASSIUM 3.8 mmol/L (3.5-5.1); SODIUM SERUM 140 mmol/L (136-145); UREA NITROGEN, BLOOD 11 mg/dL (7-18)
[2024-04-01 19:42] LABS: CARBAMAZEPINE (TEGRETOL) 4.7 mcg/mL (4.0-12.0)
[2024-04-01 21:53] VITALS: BP 119/68; PULSE 75; RESP 15; TEMP 97; O2SAT 98
== END 2024-04-01 21:59 | disposition home or self-care (01) ==
LOC: EMS 16:03
DX: G40.909 Epilepsy, unspecified, not intractable, without status epilepticus (principal); Z79.624 Long term (current) use of inhibitors of nucleotide synthesis; Z90.49 Acquired absence of other specified parts of digestive tract
CPT/HCPCS: 99284; 96365; 96375; 80048; 80156; 85025; 36415; J0712; J2060; J7060

== ENCOUNTER 2024-07-16 01:58 | Emergency (ER) | payer OTHER ==
[~2024-07-16] VITALS: Ht 157.5 cm; Wt 80.5 kg
[~2024-07-16 01:58] MED LIST changes: +LATA2.5D14 OU; +MYCO500T5 PO
[2024-07-16] MEDS: TraMADol HCL 50 MG TABLET PO ONE (03:39)
[2024-07-16] MEDS ORDERED: TRAM50TA5 PO (04:29)
[2024-07-16 05:11] VITALS: BP 129/73; PULSE 74; RESP 18; TEMP 97.3; O2SAT 99
== END 2024-07-16 05:18 | disposition home or self-care (01) ==
LOC: EMS 01:58
DX: S20.213A Contusion of bilateral front wall of thorax, initial encounter (principal); S49.92XA Unspecified injury of left shoulder and upper arm, initial encounter; Z79.624 Long term (current) use of inhibitors of nucleotide synthesis; Z90.49 Acquired absence of other specified parts of digestive tract; W19.XXXA Unspecified fall, initial encounter; Y93.89 Activity, other specified; Y92.89 Other specified places as the place of occurrence of the external cause; Y99.8 Other external cause status
CPT/HCPCS: 71110; 99284; 73030-TC; Z7502; Z7610

== ENCOUNTER 2024-12-01 19:47 | Emergency (ER) | payer OTHER ==
[~2024-12-01] VITALS: Ht 157.5 cm; Wt 80.5 kg
[~2024-12-01 19:47] MED LIST changes: +LEVE100023 PO; -LEVE10006 PO; +TRAM50TA5 PO
[2024-12-01 20:16] VITALS: BP 119/68; PULSE 107; RESP 18; TEMP 98.6; O2SAT 100
[2024-12-01] MEDS ORDERED: FAMO20 PO (20:26)
[2024-12-01] MEDS ORDERED: LEVE-71 PO ×2 (20:26)
[2024-12-01] MEDS ORDERED: LACO150T4 PO (20:26)
[2024-12-01] MEDS ORDERED: VONO20TA PO (20:26)
[2024-12-01] MEDS ORDERED: LAMO-24 PO (20:26)
[2024-12-01 20:58] LABS: BASOPHILS % (AUTO) 0.6 % (0.0-2.0); EOSINOPHILS % (AUTO) 0 % (1.0-6.0); HEMATOCRIT 41.4 % (36-46); HEMOGLOBIN 13.8 g/dL (12.0-16.0); LYMPHOCYTES # (AUTO) 0.8 K/uL (1.0-4.8); LYMPHOCYTES % (AUTO) 9.6 % (22.0-44.0); MEAN CORPUSCULAR HEMOGLOBIN 29.8 pg (26.0-34.0); MEAN CORPUSCULAR HGB CONC 33.2 G/dL (31.0-37.0); MEAN CORPUSCULAR VOLUME 90 fL (80-100); MONOCYTES # (AUTO) 0.6 K/uL (0.1-1.0); MONOCYTES % (AUTO) 7.7 % (2.0-9.0); NEUTROPHILS # (AUTO) 6.7 K/uL (1.8-7.7); NEUTROPHILS % (AUTO) 82.1 % (40.0-70.0); PLATELET COUNT (AUTO) 118 K/uL (150-450); RED BLOOD CELL COUNT(AUTO) 4.62 MIL/uL (4.00-5.20); RED CELL DISTRIBUTION WIDTH 14.6 % (11.5-14.5); WHITE BLOOD COUNT (AUTO) 8.2 K/uL (4.5-11.0)
[2024-12-01 21:07] LABS: CREATININE 1.01 mg/dL (0.60-1.30)
[2024-12-01] MEDS: ONDANSETRON 4 MG TABLET PO ONE (22:12)
[2024-12-01] MEDS: MAG HYDROX/ALUMINUM HYD/SIMETH 30 ML SUSPENSION UDCUP PO ONE (22:42)
== END 2024-12-02 00:11 | disposition home or self-care (01) ==
LOC: EMS 19:47
DX: G40.909 Epilepsy, unspecified, not intractable, without status epilepticus (principal); R10.13 Epigastric pain; R11.2 Nausea with vomiting, unspecified; Z90.49 Acquired absence of other specified parts of digestive tract; Z79.899 Other long term (current) drug therapy
CPT/HCPCS: 99283; 80048; 83735; 85025; 36415; Q0162

== ENCOUNTER 2024-12-02 16:39 | Emergency (ER) | payer OTHER ==
[~2024-12-02] VITALS: Ht 160 cm; Wt 72.7 kg
[~2024-12-02 16:39] MED LIST changes: +FAMO20 PO; +LACO150T4 PO; +LAMO-24 PO; +LEVE-71 PO; +VONO20TA PO
[2024-12-02 16:43] VITALS: BP 126/62; PULSE 64; RESP 18; TEMP 98.5; O2SAT 99
[2024-12-02 18:20] LABS: BASOPHILS % (AUTO) 0.4 % (0.0-2.0); EOSINOPHILS % (AUTO) 0 % (1.0-6.0); HEMATOCRIT 42.4 % (36-46); LYMPHOCYTES # (AUTO) 0.6 K/uL (1.0-4.8); LYMPHOCYTES % (AUTO) 8.7 % (22.0-44.0); MEAN CORPUSCULAR HEMOGLOBIN 29.7 pg (26.0-34.0); MEAN CORPUSCULAR HGB CONC 33.1 G/dL (31.0-37.0); MEAN CORPUSCULAR VOLUME 90 fL (80-100); MONOCYTES # (AUTO) 0.6 K/uL (0.1-1.0); MONOCYTES % (AUTO) 7.8 % (2.0-9.0); NEUTROPHILS % (AUTO) 83.1 % (40.0-70.0); PLATELET COUNT (AUTO) 128 K/uL (150-450); RED BLOOD CELL COUNT(AUTO) 4.73 MIL/uL (4.00-5.20); RED CELL DISTRIBUTION WIDTH 14.7 % (11.5-14.5); WHITE BLOOD COUNT (AUTO) 7.3 K/uL (4.5-11.0)
[2024-12-02 18:28] LABS: ANION GAP 4 mmol/L (8-16); CALCIUM, TOTAL 8.9 mg/dL (8.8-10.5); CARBON DIOXIDE 29 mmol/L (22-29); CHLORIDE 108 mmol/L (98-107); CREATININE 0.85 mg/dL (0.60-1.30); GLOMERULAR FILTR. RATE CALC > 60 mL/min (>60); GLUCOSE,RANDOM 104 mg/dL (70-110); POTASSIUM 3.7 mmol/L (3.5-5.1); SODIUM SERUM 141 mmol/L (136-145); UREA NITROGEN, BLOOD 13 mg/dL (7-18)
[2024-12-02 21:15] LABS: APPEARANCE,URINE CLEAR (CLEAR); BILIRUBIN,URINE NEGATIVE (NEGATIVE); COLOR,URINE LIGHT YELLOW (YELLOW); GLUCOSE, URINE (UA) NEGATIVE (NEGATIVE); KETONES,URINE NEGATIVE (NEGATIVE); LEUKOCYTE ESTERASE ,URINE TRACE (NEGATIVE); NITRATE,URINE NEGATIVE (NEGATIVE); OCCULT BLOOD,URINE NEGATIVE (NEGATIVE); PH,URINE 7.5 (5.0-8.0); PROTEIN,URINE NEGATIVE (NEGATIVE); SPECIFIC GRAVITIY, URINE 1.016 (1.003-1.030); UROBILINOGEN,URINE <=1.0 mg/dL (<=1.0)
[2024-12-02 21:26] LABS: BACTERIA,URINE Few /HPF (None Seen); RBC,URINE 0-2 /HPF (0-2); SQUAMOUS EPITHELIAL CELL,UR Few /LPF (None Seen)
[2024-12-02] MEDS: PB/HYOSCY/ATR/SCOP/LIDO/MAALOX 55 ML BOTTLE PO ONE (22:33)
[2024-12-02] MEDS: METOCLOPRAMIDE HCL 10 MG TABLET PO ONE (22:33)
[2024-12-02] MEDS: OMEPRAZOLE 10 MG CAPSULE PO ONE (22:59)
[2024-12-02] MEDS: SIMETHICONE 80 MG CHEWABLE TABLET CHEW ONE (22:59)
== END 2024-12-03 00:10 | disposition home or self-care (01) ==
LOC: EMS 16:39
DX: R10.13 Epigastric pain (principal); R11.2 Nausea with vomiting, unspecified; G40.909 Epilepsy, unspecified, not intractable, without status epilepticus; M19.90 Unspecified osteoarthritis, unspecified site; Z90.49 Acquired absence of other specified parts of digestive tract; Z79.899 Other long term (current) drug therapy
CPT/HCPCS: 74018; 80048; 81001; 83690; 84703; 85025; 99284; 36415-L1; 36415-TC

== ENCOUNTER 2024-12-17 08:05 | Inpatient (IN) | payer OTHER ==
[~2024-12-17] VITALS: Ht 157.5 cm; Wt 83.3 kg
[~2024-12-17 08:05] MED LIST changes: -CARB-92 PO; -HYDR200T76 PO; -IBUP-1492 PO; -LATA2.5D14 OU; +LATA2.5D7 OU; -LEVE100023 PO; -MYCO500T5 PO; -TRAM50TA5 PO
[2024-12-17 08:30] LABS: COVID AG,FIA SOURCE NASAL SWAB
[2024-12-17] MEDS ORDERED: 0.9% SODIUM CHLORIDE 10 ML SYRINGE IVP PRN (08:45)
[2024-12-17] MEDS: ONDANSETRON HCL 4 MG/2 ML VIAL IVP ONE (08:55)
[2024-12-17] MEDS: SODIUM CHLORIDE 0.9% 2,400 ML IV ONE (08:56)
[2024-12-17] MEDS: ACETAMINOPHEN 1000 MG/ISO-OSM 100 ML IV ONE (08:56)
[2024-12-17 08:59] LABS: RAPID GROUP A STREP NEGATIVE (NEGATIVE)
[2024-12-17 09:03] LABS: INFLUENZA TYPE A NEGATIVE FOR TYPE A (NEGATIVE); INFLUENZA TYPE B NEGATIVE FOR TYPE B (NEGATIVE); SARS-COV2 (COVID) ANTIGEN,FIA Negative (Negative)
[2024-12-17 09:07] LABS: RED BLOOD CELL COUNT(AUTO) 4.53 MIL/uL (4.00-5.20); RED CELL DISTRIBUTION WIDTH 14.1 % (11.5-14.5); WHITE BLOOD COUNT (AUTO) 6.7 K/uL (4.5-11.0)
[2024-12-17 09:24] LABS: LACTIC ACID 1.5 mmol/L (0.4-2.0)
[2024-12-17 09:27] LABS: CALCIUM, TOTAL 8.6 mg/dL (8.8-10.5); CREATININE 0.89 mg/dL (0.60-1.30); GLOMERULAR FILTR. RATE CALC > 60 mL/min (>60); GLUCOSE,RANDOM 128 mg/dL (70-110); SODIUM SERUM 136 mmol/L (136-145); UREA NITROGEN, BLOOD 8 mg/dL (7-18)
[2024-12-17 09:29] LABS: TROPONIN I-HIGH SENSITIVITY 135 ng/L (<51)
[2024-12-17 09:34] LABS: ASPARTATE AMINOTRANSFERASE 26 U/L (15-37); CREATINE KINASE, TOTAL ONLY 142 U/L (26-192); TOTAL PROTEIN, SERUM 7.2 g/dL (6.4-8.2)
[2024-12-17 10:07] LABS: PLATELET COUNT (AUTO) 97 K/uL (150-450)
[2024-12-17] MEDS: CefTRIAXone 1 GM/DEXTROSE 50 ML IV ONE (10:14)
[2024-12-17 10:29] LABS: APPEARANCE,URINE CLEAR (CLEAR); GLUCOSE, URINE (UA) NEGATIVE (NEGATIVE); LEUKOCYTE ESTERASE ,URINE NEGATIVE (NEGATIVE); NITRATE,URINE NEGATIVE (NEGATIVE); OCCULT BLOOD,URINE TRACE (NEGATIVE); SPECIFIC GRAVITIY, URINE 1.012 (1.003-1.030)
[2024-12-17] MEDS: AZITHROMYCIN 500 MG/NS 250 ML IV ONE (10:51)
[2024-12-17] MEDS ORDERED: ACETAMINOPHEN 650 MG RECTAL SUPPOSITORY PR PRN (12:00)
[2024-12-17 12:08] LABS: TROPONIN I-HIGH SENSITIVITY 127 ng/L (<51)
[2024-12-17] MEDS: ONDANSETRON HCL 4 MG/2 ML VIAL IVP PRN (15:47)
[2024-12-17 17:31] VITALS: BP 137/102; PULSE 117; RESP 20; TEMP 101.3; O2SAT 96
[2024-12-17 18:08] VITALS: BP 116/47; RESP 20; O2SAT 96
[2024-12-17 19:22] VITALS: BP 128/78; PULSE 12; PULSE 120; RESP 20; TEMP 102.9; O2SAT 96
[2024-12-17] MEDS: DOCUSATE SODIUM 100 MG CAPSULE PO SCH (21:00)
[2024-12-17 21:37] VITALS: TEMP 102.7
[2024-12-17] MEDS: LACOSAMIDE 100 MG TABLET PO SCH (21:41)
[2024-12-17] MEDS: ACETAMINOPHEN 325 MG TABLET PO PRN (21:43)
[2024-12-18] VITALS (8 sets, daily range): BP systolic 100–131; BP diastolic 55–88; PULSE 89–110; RESP 15–20; TEMP 98.4–100.2; O2SAT 92–98
[2024-12-18] MEDS: KETOROLAC TROMETHAMINE 15 MG/ML VIAL IVP ONE (02:09)
[2024-12-18] MEDS: FAMOTIDINE 20 MG TABLET PO SCH (08:31)
[2024-12-18] MEDS: CefTRIAXone 1 GM/DEXTROSE 50 ML IV SCH (10:13)
[2024-12-18] MEDS ORDERED: SODIUM CHLORIDE 0.9% 1,000 ML ONE (10:14)
[2024-12-18] MEDS: AZITHROMYCIN 500 MG/NS 250 ML IV SCH (11:27)
[2024-12-18 14:30] LABS: CALCIUM, TOTAL 7.8 mg/dL (8.8-10.5); CREATININE 0.89 mg/dL (0.60-1.30); GLOMERULAR FILTR. RATE CALC > 60 mL/min (>60); GLUCOSE,RANDOM 135 mg/dL (70-110); SODIUM SERUM 131 mmol/L (136-145); TROPONIN I-HIGH SENSITIVITY 36 ng/L (<51); UREA NITROGEN, BLOOD 11 mg/dL (7-18)
[2024-12-18] MEDS ORDERED: POTASSIUM CHLORIDE 20 MEQ ER TABLET PO PRN (18:00)
[2024-12-18] MEDS ORDERED: POTASSIUM CHL 10 MEQ/WATER 50 ML IV PRN (18:00)
[2024-12-18 20:16] LABS: TROPONIN I-HIGH SENSITIVITY 414 ng/L (<51)
[2024-12-18] MEDS: MORPHINE SULFATE 2 MG/ML SYRINGE IVP PRN (20:57)
[2024-12-19] VITALS (8 sets, daily range): BP systolic 129–147; BP diastolic 70–94; PULSE 86–119; RESP 18–43; TEMP 97.9–100.1; O2SAT 95–98
[2024-12-19 06:34] LABS: PLATELET COUNT (AUTO) 91 K/uL (150-450); RED BLOOD CELL COUNT(AUTO) 4.47 MIL/uL (4.00-5.20); RED CELL DISTRIBUTION WIDTH 14.0 % (11.5-14.5); WHITE BLOOD COUNT (AUTO) 14.5 K/uL (4.5-11.0)
[2024-12-19 07:46] LABS: TROPONIN I-HIGH SENSITIVITY 174 ng/L (<51)
[2024-12-19] MEDS: MORPHINE SULFATE 2 MG/ML SYRINGE IVP PRN (08:49)
[2024-12-19] MEDS ORDERED: ALBUTEROL SULFATE 2.5 MG/0.5 ML NEB SOLUTION NEB PRN (09:45)
[2024-12-19 10:22] LABS: ABG BASE EXCESS -3.2 mmol/L (-2.0-3.0); ABG CARBOXYHEMOGLOBIN 0.9 % (0.5-1.5); ABG HCO3 22.4 mmol/L (21.0-28.0); ABG METHEMOGLOBIN 0.3 % (0.0-1.5); ABG OXYGEN CONTENT 19.2 mL/dL (15.0-23.0); ABG OXYGEN SATURATION 98.2 % (94.0-98.0); ABG OXYHEMOGLOBIN 97.0 % (94.0-98.0); ABG PCO2 35 mmHg (32.0-45.0); ABG PH 7.404 (7.350-7.450); ABG TOTAL HEMOGLOBIN 14.0 G/dL (12.0-16.0); FRACTIONATED INSPIRED OXYGEN 36.0 % (21-100.0); PO2, ARTERIAL BG 114.1 mmHg (83.0-108.0); SOURCE, BLOOD GAS ARTERIAL; TEMPERATURE, FAHRENHEIT, BG 98.6 FAHREN (96.0-98.6)
[2024-12-19 10:23] LABS: FLOW, BLOOD GAS 4.00 L/min (0.00-15.00); O2 DEVICE,BLOOD GAS CANNULA (ROOM AIR); PATIENT RATE, BG 28.0 min.; SITE, BLOOD GAS LFT BRACHIAL
[2024-12-19] MEDS: MAGNESIUM HYDROXIDE SUSPENSION 30 ML UDCUP PO PRN (18:24)
[2024-12-20] VITALS (7 sets, daily range): BP systolic 117–140; BP diastolic 72–95; PULSE 85–115; RESP 19–32; TEMP 97.3–98.4; O2SAT 95–99
[2024-12-20 07:34] LABS: PLATELET COUNT (AUTO) 118 K/uL (150-450); RED BLOOD CELL COUNT(AUTO) 4.70 MIL/uL (4.00-5.20); RED CELL DISTRIBUTION WIDTH 14.2 % (11.5-14.5); WHITE BLOOD COUNT (AUTO) 14.1 K/uL (4.5-11.0)
[2024-12-20 07:43] LABS: CALCIUM, TOTAL 9.1 mg/dL (8.8-10.5); CREATININE 0.54 mg/dL (0.60-1.30); GLOMERULAR FILTR. RATE CALC > 60 mL/min (>60); GLUCOSE,RANDOM 152 mg/dL (70-110); SODIUM SERUM 143 mmol/L (136-145); UREA NITROGEN, BLOOD 11 mg/dL (7-18)
[2024-12-21 00:37] VITALS: BP 130/75; PULSE 97; RESP 20; TEMP 98.8; O2SAT 98
[2024-12-21 04:00] VITALS: BP 136/84; PULSE 92; RESP 28; TEMP 98.1; O2SAT 97
[2024-12-21 06:39] LABS: PLATELET COUNT (AUTO) 152 K/uL (150-450); RED BLOOD CELL COUNT(AUTO) 4.79 MIL/uL (4.00-5.20); RED CELL DISTRIBUTION WIDTH 14.2 % (11.5-14.5); WHITE BLOOD COUNT (AUTO) 17.3 K/uL (4.5-11.0)
[2024-12-21 08:00] VITALS: BP 123/91; PULSE 97; RESP 18; TEMP 97.8; O2SAT 97
[2024-12-21 08:44] LABS: CALCIUM, TOTAL 8.7 mg/dL (8.8-10.5); CREATININE 0.53 mg/dL (0.60-1.30); GLOMERULAR FILTR. RATE CALC > 60 mL/min (>60); GLUCOSE,RANDOM 134 mg/dL (70-110); SODIUM SERUM 139 mmol/L (136-145); UREA NITROGEN, BLOOD 13 mg/dL (7-18)
[2024-12-21 12:00] VITALS: BP 122/70; PULSE 89; RESP 18; TEMP 98.3; O2SAT 96
[2024-12-21 15:57] VITALS: BP 120/68; PULSE 90; RESP 19; TEMP 98.4; O2SAT 96
[2024-12-21 20:24] VITALS: BP 142/90; PULSE 98; RESP 19; TEMP 98.4; O2SAT 97
[2024-12-22] VITALS (7 sets, daily range): BP systolic 124–135; BP diastolic 71–90; PULSE 64–98; RESP 18–19; TEMP 97.5–98.6; O2SAT 93–98
[2024-12-23] VITALS: BP 113/66; PULSE 92; RESP 18; TEMP 98.1; O2SAT 95
[2024-12-23 04:12] VITALS: BP 123/51; PULSE 94; RESP 18; TEMP 98.2; O2SAT 93
[2024-12-23 08:03] LABS: PLATELET COUNT (AUTO) 235 K/uL (150-450); RED BLOOD CELL COUNT(AUTO) 4.90 MIL/uL (4.00-5.20); RED CELL DISTRIBUTION WIDTH 14.7 % (11.5-14.5); WHITE BLOOD COUNT (AUTO) 10.7 K/uL (4.5-11.0)
[2024-12-23 08:04] LABS: RBC MORPHOLOGY COMMENT NORMAL RBC MORPH
[2024-12-23 08:15] LABS: CALCIUM, TOTAL 8.4 mg/dL (8.8-10.5); CREATININE 0.69 mg/dL (0.60-1.30); GLOMERULAR FILTR. RATE CALC > 60 mL/min (>60); GLUCOSE,RANDOM 84 mg/dL (70-110); SODIUM SERUM 138 mmol/L (136-145); UREA NITROGEN, BLOOD 10 mg/dL (7-18)
[2024-12-23 08:29] VITALS: BP 118/61; PULSE 103; RESP 19; TEMP 98.1; O2SAT 93
[2024-12-23] MEDS ORDERED: PRED-554 PO (09:59)
[2024-12-23] MEDS ORDERED: ALBU18HF12 IH (10:01)
[2024-12-23 11:51] VITALS: BP 113/51; PULSE 99; RESP 17; TEMP 98.4; O2SAT 99
== END 2024-12-23 15:10 | disposition home or self-care (01) | DRG 720 ==
LOC: EMS 08:18 → EDH 12:08 → 5S 17:30
PROVIDERS: ADMIT Internal Medicine; ATTEND Internal Medicine
DX: A41.9 Sepsis, unspecified organism (principal); J96.01 Acute respiratory failure with hypoxia; J69.0 Pneumonitis due to inhalation of food and vomit; D69.6 Thrombocytopenia, unspecified; J45.901 Unspecified asthma with (acute) exacerbation; J20.9 Acute bronchitis, unspecified; G40.909 Epilepsy, unspecified, not intractable, without status epilepticus; Z20.822 Contact with and (suspected) exposure to COVID-19; M06.9 Rheumatoid arthritis, unspecified; E66.9 Obesity, unspecified; Z68.33 Body mass index [BMI] 33.0-33.9, adult; Z79.899 Other long term (current) drug therapy; Z90.49 Acquired absence of other specified parts of digestive tract
CPT/HCPCS: 71045; 71250; 76700; 80048; 80076; 81001; 82550; 82805; 83605; 83690; 83735; 83880; 84132; 84145; 84484; 84703; 85025; 85610; 85651; 85730; 87040; 87430; 87804; 93005; 93306; 93970; 96365; 96367; 96375; 97110; 97116; 97163; 97530; 99291; J0131; J0456; J0696; J1885; J2270; J2405; J2919; J7030; 36415-L1; 36415-TC

== ENCOUNTER 2025-05-25 19:13 | Emergency (ER) | payer OTHER ==
[~2025-05-25] VITALS: Ht 157.5 cm; Wt 75.0 kg
[~2025-05-25 19:13] MED LIST changes: +ALBU18HF12 IH; -CARB200T6 PO; -LACO150T4 PO; +LACO50 PO; -LACO50TA6 PO; +PRED-554 PO; -VONO20TA PO; +[UNRECOGNIZED DRUG - CODE] PO
[2025-05-25] MEDS: CEPHALEXIN MONOHYDRATE 500 MG CAPSULE PO ONE (22:08)
[2025-05-25] MEDS: BACITRACIN 28 GM OINTMENT TP ONE (22:09)
[2025-05-25] MEDS: PERTUSS(ACELL),DIPH,TET/PF 0.5 ML SYRINGE [ADULT] IM. ONE (22:20)
[2025-05-25] MEDS ORDERED: CEPH-558 PO (22:29)
[2025-05-25] MEDS ORDERED: TRAM50TA5 PO (22:30)
[2025-05-25 22:47] VITALS: BP 135/63; PULSE 75; RESP 18; TEMP 97.3; O2SAT 99
== END 2025-05-25 22:56 | disposition home or self-care (01) ==
LOC: EMS 19:13
DX: T23.202A Burn of second degree of left hand, unspecified site, initial encounter (principal); G40.909 Epilepsy, unspecified, not intractable, without status epilepticus; M19.90 Unspecified osteoarthritis, unspecified site; Z90.49 Acquired absence of other specified parts of digestive tract; Z79.52 Long term (current) use of systemic steroids; Z79.899 Other long term (current) drug therapy; Y92.89 Other specified places as the place of occurrence of the external cause
CPT/HCPCS: 99284; Z7502; Z7610

== ENCOUNTER 2025-06-04 15:10 | Emergency (ER) | payer OTHER ==
[~2025-06-04] VITALS: Ht 157.5 cm; Wt 72.7 kg
[~2025-06-04 15:10] MED LIST changes: +CEPH-558 PO; +TRAM50TA5 PO
[2025-06-04] MEDS ORDERED: LACO200T14 PO (15:35)
[2025-06-04] MEDS: SODIUM CHLORIDE 0.9% 1,000 ML IV ONE (15:47)
[2025-06-04] MEDS: ONDANSETRON HCL 4 MG/2 ML VIAL IVP ONE (15:47)
[2025-06-04 15:50] LABS: PLATELET COUNT (AUTO) 138 K/uL (150-450); RED BLOOD CELL COUNT(AUTO) 5.00 MIL/uL (4.00-5.20); RED CELL DISTRIBUTION WIDTH 15.0 % (11.5-14.5); WHITE BLOOD COUNT (AUTO) 6.3 K/uL (4.5-11.0)
[2025-06-04 15:58] LABS: CALCIUM, TOTAL 9.1 mg/dL (8.8-10.5); CREATININE 0.69 mg/dL (0.60-1.30); GLOMERULAR FILTR. RATE CALC > 60 mL/min (>60); GLUCOSE,RANDOM 98 mg/dL (70-110); SODIUM SERUM 142 mmol/L (136-145); UREA NITROGEN, BLOOD 11 mg/dL (7-18)
[2025-06-04] MEDS: GLUCAGON,HUMAN RECOMBINANT 1 MG VIAL IVP ONE (16:39)
[2025-06-04 16:46] LABS: APPEARANCE,URINE CLEAR (CLEAR); GLUCOSE, URINE (UA) NEGATIVE (NEGATIVE); LEUKOCYTE ESTERASE ,URINE NEGATIVE (NEGATIVE); NITRATE,URINE NEGATIVE (NEGATIVE); OCCULT BLOOD,URINE NEGATIVE (NEGATIVE); SPECIFIC GRAVITIY, URINE 1.007 (1.003-1.030)
[2025-06-04 16:55] LABS: SQUAMOUS EPITHELIAL CELL,UR Moderate /LPF (None Seen)
[2025-06-04 18:07] VITALS: BP 131/73; PULSE 74; RESP 32; O2SAT 98
[2025-06-04] MEDS ORDERED: OMEP-148 PO (18:23)
[2025-06-06] MEDS ORDERED: PANT-31 PO (07:40)
== END 2025-06-04 18:30 | disposition home or self-care (01) ==
LOC: EMS 15:14
DX: T18.128A Food in esophagus causing other injury, initial encounter (principal); K22.4 Dyskinesia of esophagus; G40.909 Epilepsy, unspecified, not intractable, without status epilepticus; M19.90 Unspecified osteoarthritis, unspecified site; K21.00 Gastro-esophageal reflux disease with esophagitis, without bleeding; Z90.49 Acquired absence of other specified parts of digestive tract; Z79.899 Other long term (current) drug therapy; W44.F3XA Food entering into or through a natural orifice, initial encounter
CPT/HCPCS: 99284; 96374; 71045; 96361; 96375; 80048; 81001; 84703; 85025; 36415; J1610; J2405; J7030